=== PATIENT | male | born 1950 | race Caucasian/White ===

== ENCOUNTER 2017-09-07 10:13 | Outpatient (CLI) ==
--- NOTE | 2017-09-07 11:46 | US ---
EXAM: ULTRASOUND AORTA HISTORY: Uncontrolled hypertension FINDINGS: Ultrasound aorta. Real time oliver-scale ultrasound, color Doppler imaging and spectral griselda lysis performed. The AP and transverse measurements respectively, in centimeters are as follows: Proximal: 1.9 x 1.5 Mid: 1.4 x 1.4 Distal: 1.4 x 1.6 Right iliac: 0.8 x 0.9 Left iliac: 1.0 x 1.3 IMPRESSION: No sonographic evidence of aneurysmal caliber of the abdominal aorta.
--- NOTE | 2017-09-07 11:53 | US ---
EXAM: Renal artery Doppler ultrasound. HISTORY: Uncontrolled hypertension COMPARISON: None TECHNIQUE: Renal artery Doppler ultrasound was performed. FINDINGS: The aorta and inferior vena cava are patent. The aorta measures 1.4 cm at the level of the renal art eries. Peak systolic velocity in the aorta is 0.7 cm/sec. The right kidney measures 10.5 cm in length. No hydronephrosis. Peak systolic velocities in the liane n renal artery at the ostium, midportion, and renal hilum are 1.0, 0.6, and 0.5 cm/sec respectively. These values are normal. Doppler wave forms are normal. The arcuate artery resistive index measure s 0.7. This value is normal. Right renal vein is patent. The left kidney measures 11.9 cm in length. No hydronephrosis. Peak systolic velocities in the main renal artery at the ostium, midportion, and renal hilum are 0.5 , 0.9 , and 1.1 cm/sec respectively. These values are normal. Doppler wave forms are normal. The arcuate artery resistive index measur es 0.69. This value is normal. Left renal vein is patent. Please see separate report renal ultrasound IMPRESSION: No evidence of renal artery stenosis.
--- NOTE | 2017-09-07 11:53 | US ---
EXAM: Renal ultrasound. History: Uncontrolled hypertension. Technique: Multiple sonographic images through the kidneys were obtained. Color duplex Doppler was used to interrogate vascular flow. Findings: The right kidney measures 10.7 cm in long length without evidence for hydronephrosis or shadowing michelle culus. 3 cm anechoic cyst. The left kidney measures 12.2 cm in long length without evidence for hydronephrosis or shadowing calc ulus. There are two anechoic cysts with the largest measuring 1.8 cm. The visualized bladder demonstrates no gross abnormality. Impression: 1. No hydronephrosis and no shadowing calculi. 2. Simple bilateral renal cysts
== END 2017-09-07 10:14 | disposition home or self-care (01) ==
LOC: RAD 10:13
PROVIDERS: ATTEND Internal Medicine
DX: E78.5 Hyperlipidemia, unspecified (principal); N18.9 Chronic kidney disease, unspecified; I10 Essential (primary) hypertension
CPT/HCPCS: 76770; 76775

== ENCOUNTER 2018-05-29 16:06 | Emergency (ER) ==
[2018-05-29 16:09] VITALS: BP 160/71; TEMP 98.8; BMI 27.6
[2018-05-29] MEDS ORDERED: LIDOCAINE HCL 1% SDV SUBCUT STA (19:04)
--- NOTE | 2018-05-29 19:38 | ED.PDOC ---
General ED Provider: Dr. SHELBY ALICIA Chief Complaint: Finger Laceration Stated Complaint: Was sharpening knife and accidently cut index finger-dorsal aspect proximal to distal flexion crease Time Seen by Physician: 18:30 Mode of Arrival: Walk-In Information Source: Patient Exam Limitations: No limitations Primary Care Provider: DONNIE BOYD Nursing and Triage Documentation Reviewed and Agree: Yes Does patient meet sepsis criteria?: No System Inflammatory Response Syndrome: Not Applicable Sepsis Protocol: For patient's 13 years and over: Temp is 96.8 and below OR 101 and greater Pulse >90 BPM Resp >20/minute Acutely Altered Mental Status Are patient's symptoms suggestive of a new infection, such as: -Pneumonia -Skin, Soft Tissue -Endocarditis -UTI -Bone, Joint Infection -Implantable Device -Acute Abdominal Infection -Wound Infection -Meningitis -Blood Stream Catheter Infection -Unknown Trauma/Injury Complaint Exam - Trauma Complaint/Exam Location of Pain or Injury: Reports: LUE (Hand-index finger) Mechanism of Injury: Reports: Other (laceration -sharp knife) Symptoms Are: Still present Timing of Treatment: Immediate Initial Severity: Severe Current Severity: Moderate Review of Systems - Review Of Systems Constitutional: Reports: No symptoms Eyes: Reports: No symptoms Ears, Nose, Mouth, Throat: Reports: No symptoms Respiratory: Reports: No symptoms Cardiac: Reports: No symptoms GI: Reports: No symptoms : Reports: No symptoms Musculoskeletal: Reports: No symptoms Skin: Reports: No symptoms Neurological: Reports: No symptoms Endocrine: Reports: No symptoms Hematologic/Lymphatic: Reports: No symptoms All Other Systems: Reviewed and Negative Past Medical History - Past Medical History Previously Healthy: Yes Endocrine: Reports: None, DM 2, Dyslipidemia Cardiovascular: Reports: None, Hypertension Respiratory: Reports: None Hematological: Reports: None Gastrointestinal: Reports: None Genitourinary: Reports: None Neuro/Psych: Reports: None Musculoskeletal: Reports: None Cancer: Reports: None - Surgical History General Surgical History: Reports: None - Family History Family History: Reports: None - Social History Smoking Status: Current every day smoker, Light tobacco smoker Hx Substance Use: No Alcohol Screening: Occasionally - Immunizations Tetanus Shot up to Date: No Physical Exam - Physical Exam Appearance: Well-appearing, No pain distress, Well-nourished Eyes: EMILE, EOMI, Conjunctiva clear ENT: Ears normal, Nose normal, Oropharynx normal Respiratory: Airway patent, Breath sounds clear, Breath sounds equal, Respirations nonlabored Cardiovascular: RRR, Pulses normal, No rub, No murmur GI/: Soft, Nontender, No masses, Bowel sounds normal, No Organomegaly Musculoskeletal: Normal strength, ROM intact, No edema, No calf tenderness Skin: Warm, Dry, Normal color Neurological: Sensation intact, Motor intact, Reflexes intact, Cranial nerves intact, Alert, Oriented Psychiatric: Affect appropriate, Mood appropriate Procedures - Laceration/Wound Repair lt 2nd phalynx Wound Description: Other (Distal phalynx -2nd digit) Wound Length (cm): 2 Wound Width: 2 mm Wound Depth: deep Wound Explored: Clean Wound Irrigated: Yes Wound Prep: Saline, Hibiclens, Betadine Anesthesia: Lidocaine Wound Repaired With: Sutures Suture Size and Type: 5-0 vicryl and 4-0 prolene Number of Sutures: 2 Critical Care Note - Critical Care Note Total Time (mins): 0 Course - Course Orders, Labs, Meds: Orders Category Date Time Status Cephalexin [Keflex] MEDS 05/29/18 20:11 Discontinued 500 mg PO ONCE STA Diphth,Pertuss(Acell),Tet Vac [Boostrix] MEDS 05/29/18 19:41 Discontinued 0.5 ml IM .ONCE ONE Lidocaine HCl/Pf [Lidocaine HCl 1% Sdv] MEDS 05/29/18 19:04 Discontinued 5 ml SUBCUT ONCE STA FINGER(S), LEFT MIN 2V Stat RADS 05/29/18 19:39 Completed Medications Discontinued Medications Generic Name Dose Route Start Last Admin Trade Name Freq PRN Reason Stop Dose Admin Cephalexin 500 mg 05/29/18 20:11 05/29/18 20:21 Keflex PO 05/29/18 20:12 500 mg ONCE STA Administration Diphtheria/Pertussis/Tetanus Vacc 0.5 ml 05/29/18 19:41 05/29/18 19:52 Boostrix IM 05/29/18 19:42 0.5 ml .ONCE ONE Administration Lidocaine HCl 5 ml 05/29/18 19:04 05/29/18 19:51 Lidocaine Hcl 1% Sdv SUBCUT 05/29/18 19:05 5 ml ONCE STA Administration Vital Signs: Temp Pulse Resp BP Pulse Ox 05/29/18 16:06 98.8 F 81 20 160/71 H 98 Departure - Departure Time of Disposition: 20:20 Disposition: HOME SELF-CARE Discharge Problem: Laceration of finger of left hand Discharge Problem: (Ruled Out): Laceration of pharynx Instructions: Laceration (ED), Tdap and Td Vaccines for Adults (ED) Condition: Good Pt referred to PMD for follow-up: Yes IPMP verified?: No Additional Instructions: SEE DR. BOYD OR COME BACK TO GET STITCHES OUT IN 7-10 DAYS RETURN IF YOU HAVE SIGNS OF INFECTION Prescriptions: Hydrocodone Bit/Acetaminophen [[place] 5-325] 1 each PO Q6HR PRN #10 tablet PRN Reason: severe pain Cephalexin [Keflex] 500 mg PO BID #14 capsule Allergies/Adverse Reactions: Allergies No Known Allergies Allergy (Verified 05/29/18 16:09) Home Medications: Ambulatory Orders Aspirin [Judah Chewable] 81 mg PO DAILY 06/25/15 Fenofibric Acid (Choline) [Fenofibric Acid] 135 mg PO DAILY 06/25/15 Metformin HCl [Glucophage] 1,000 mg PO BIDWM 06/25/15 Multivitamin 1 cap PO DAILY 06/25/15 Rosuvastatin Calcium [Crestor] 20 mg PO DAILY 06/25/15 Amlodipine Besylate [Norvasc] 10 mg PO DAILY 05/29/18 Canagliflozin [Invokana] 100 mg PO DAILY 05/29/18 Cephalexin [Keflex] 500 mg PO BID #14 capsule 05/29/18 Hydrocodone Bit/Acetaminophen [[place] 5-325] 1 each PO Q6HR PRN #10 tablet Losartan Potassium [Cozaar] 100 mg PO DAILY 05/29/18 Disposition Discussed With: Patient Musculoskeletal Complaint Exam - Hand/Wrist Complaint/Exam Location of Pain: Reports: Left, Hand, Digit #2 Mechanism of Injury: Reports: Trauma Onset/Duration: today Symptoms Are: Still present Onset of Pain: Reports: Immediate Initial Severity: Severe Current Severity: Moderate Location: Reports: Discrete Character: Reports: Sharp, Aching Alleviating: Reports: Rest Aggravating: Reports: Movement Associated Signs and Symptoms: Denies: Swelling, Redness, Bruising, Fever, Weakness, Numbness, Tingling Related History: Denies: Similar episode Dominant Hand: Right Related Surgical History: Reports: None Hand/Wrist Findings: Present: Swelling (distal lt index finger) Differential Diagnoses: Other (Laceration )
[2018-05-29] MEDS ORDERED: BOOSTRIX IM ONE (19:41)
[2018-05-29] MEDS ORDERED: KEFLEX PO STA (20:11)
--- NOTE | 2018-05-29 21:28 | DI ---
EXAM: Three views of the left second digit HISTORY: Laceration. COMPARISON: None FINDINGS: There is a soft tissue injury/laceration of the left second digit. There is narrowing and degenerative change of the DIP joint. There is no lytic or blastic lesion. There is mild degenerati ve change of the thumb IP joint. There is no abnormal periosteal reaction. IMPRESSION: 1. Soft tissue injury consistent with laceration with no acute osseous abnormality. 2. Minimal degenerative change of the DIP joint of the second digit with minimal scattered degenerat katie change.
== END 2018-05-29 20:24 | disposition home or self-care (01) ==
LOC: ED 16:06
DX: S61.211A Laceration without foreign body of left index finger without damage to nail, initial encounter (principal); W26.0XXA Contact with knife, initial encounter; F17.210 Nicotine dependence, cigarettes, uncomplicated
CPT/HCPCS: 90471; 90715; 99283